=== PATIENT | male | born 1955 | race Caucasian/White ===

== ENCOUNTER 2023-01-26 11:44 | Emergency (ER) | payer BC, OTHER ==
[~2023-01-26] VITALS: Ht 167.6 cm; Wt 70.3 kg
[2023-01-26 11:53] VITALS: BP 115/61; TEMP 98.3
--- NOTE | 2023-01-26 11:53 | NUR ---
L 5TH DIGIT LACERATION YESTERDAY USING A HAND SAW. [facility] SENT HERE FOR A FINGER XRAY.
[2023-01-26] MEDS: TDAP [DIPH/PERTUSSIS/TET] 0.5 ML VIAL IM ONE (13:06)
[2023-01-26] MEDS ORDERED: BACI30OI9 TP (14:54)
[2023-01-26 15:17] VITALS: O2SAT 99
== END 2023-01-26 15:20 | disposition home or self-care (01) ==
LOC: ER 12:14
DX: S61.217A Laceration without foreign body of left little finger without damage to nail, initial encounter (principal); Z79.899 Other long term (current) drug therapy; W27.0XXA Contact with workbench tool, initial encounter; Y93.89 Activity, other specified; Y92.89 Other specified places as the place of occurrence of the external cause; Y99.8 Other external cause status
CPT/HCPCS: 73130-TC; 90715

== ENCOUNTER 2023-03-23 15:59 | Emergency (ER) | payer OTHER ==
[~2023-03-23] VITALS: Ht 165.1 cm; Wt 70.3 kg
[~2023-03-23 15:59] MED LIST: BACI30OI9 TP
[2023-03-23 16:25] VITALS: BP 109/70; TEMP 99.2; O2SAT 99
[2023-03-23] MEDS ORDERED: IBUP-1955 PO (16:49)
[2023-03-23] MEDS ORDERED: PRED20TA PO (16:49)
[2023-03-23] MEDS ORDERED: MUPI22OI2 TP (16:49)
[2023-03-23] MEDS ORDERED: BACI/NEOM/POLY B OINT PKT 1 UDPKT PACKET ONE (16:57)
[2023-03-23] MEDS ORDERED: KETOROLAC TROMETHAMINE INJ 30 MG/ML VIAL ONE (16:58)
[2023-03-23] MEDS ORDERED: BACI/NEOM/POLY B OINT PKT 1 UDPKT PACKET TP ONE (17:00)
[2023-03-23] MEDS ORDERED: KETOROLAC TROMETHAMINE INJ 60 MG/2 ML VIAL IM ONE (17:00)
== END 2023-03-23 17:08 | disposition home or self-care (01) ==
LOC: ER 16:04
DX: S60.416A Abrasion of right little finger, initial encounter (principal); M54.32 Sciatica, left side; Z79.899 Other long term (current) drug therapy; Z59.00 Homelessness unspecified; X58.XXXA Exposure to other specified factors, initial encounter; Y93.H2 Activity, gardening and landscaping; Y92.89 Other specified places as the place of occurrence of the external cause; Y99.8 Other external cause status
CPT/HCPCS: 99283; 96372; J1885

== ENCOUNTER 2023-06-15 08:54 | Emergency (ER) | payer MEDICAID, OTHER ==
[~2023-06-15] VITALS: Ht 170.2 cm; Wt 70.3 kg
[~2023-06-15 08:54] MED LIST changes: +IBUP-1955 PO; +MUPI22OI2 TP; +PRED20TA PO
[2023-06-15 09:42] LABS: BASOPHILS # (AUTO) 0.1 K/uL (0.0-0.2); BASOPHILS % (AUTO) 0.8 % (0.0-2.0); EOSINOPHILS # (AUTO) 0.3 K/uL (0.0-0.7); EOSINOPHILS % (AUTO) 4.1 % (0.0-6.0); HEMATOCRIT 39 % (39-51); LYMPHOCYTES # (AUTO) 2.4 K/uL (0.8-4.8); LYMPHOCYTES % (AUTO) 35.1 % (20.0-44.0); MEAN CORPUSCULAR HEMOGLOBIN 30 PG (26.0-33.0); MEAN CORPUSCULAR HGB CONC 33 g/dl (31.0-36.0); MEAN CORPUSCULAR VOLUME 89 fL (80-96); MONOCYTES # (AUTO) 0.6 K/uL (0.1-1.30); MONOCYTES % (AUTO) 8.7 % (2.0-12.0); NEUTROPHILS # (AUTO) 3.5 K/uL (1.8-8.9); NEUTROPHILS % (AUTO) 51.3 % (43.0-81.0); PLATELET COUNT (AUTO) 211 K/uL (150-450); RED CELL DISTRIBUTION WIDTH 14.4 % (11.5-15.0); WHITE BLOOD COUNT (AUTO) 6.8 K/uL (4.3-11.0)
[2023-06-15 09:53] LABS: CALCIUM, SERUM 8.9 mg/dL (8.5-10.1); CREATININE 0.7 mg/dL (0.6-1.3); POTASSIUM 3.5 mmol/L (3.5-5.1)
[2023-06-15 09:59] LABS: ALBUMIN 3.9 g/dL (3.4-5.0); BILIRUBIN,DIRECT 0.2 mg/dL (0.0-0.2); BILIRUBIN,TOTAL 0.7 mg/dL (0.2-1.0); TOTAL PROTEIN, SERUM 7.6 g/dL (6.4-8.2)
[2023-06-15 11:06] VITALS: BP 120/75; TEMP 98.2; O2SAT 96
== END 2023-06-15 11:08 | disposition home or self-care (01) ==
LOC: ER 08:54
DX: R10.30 Lower abdominal pain, unspecified (principal); Z98.890 Other specified postprocedural states; Z79.899 Other long term (current) drug therapy; Z59.00 Homelessness unspecified
CPT/HCPCS: 36415; 80048-TC; 80076-TC; 83690-TC; 85025-TC

== ENCOUNTER 2023-09-03 16:15 | Emergency (ER) | payer OTHER ==
[~2023-09-03] VITALS: Ht 167.6 cm; Wt 70.3 kg
[2023-09-03] MEDS ORDERED: FLUORESCEIN SODIUM OPHTH 1 EA STRIP ONE (16:40)
[2023-09-03] MEDS ORDERED: POLY10DR OP (16:50)
[2023-09-03] MEDS: FLUORESCEIN SODIUM OPHTH 1 EA STRIP OP ONE (17:08)
[2023-09-03 18:44] VITALS: BP 119/65; TEMP 98.2; O2SAT 98
== END 2023-09-03 17:30 | disposition home or self-care (01) ==
LOC: ER 16:18
DX: H57.12 Ocular pain, left eye (principal); Z98.890 Other specified postprocedural states; Z79.899 Other long term (current) drug therapy; Z59.00 Homelessness unspecified

== ENCOUNTER → 2023-11-11 | Emergency (ER) | payer OTHER ==
[~2023-11-11] VITALS: Ht 170.2 cm; Wt 70.3 kg
[~2023-11-11] MED LIST changes: +CYCL10TA9 PO; +IBUPROFEN 600 MG TABLET ONE; +POLY10DR OP
[2023-11-11] MEDS: IBUPROFEN 600 MG TABLET PO ONE (16:12)
[2023-11-11 16:18] VITALS: BP 111/64; TEMP 98.2; O2SAT 98
== END | disposition home or self-care (01) ==
LOC: ER 15:10
DX: S16.1XXA Strain of muscle, fascia and tendon at neck level, initial encounter (principal); S29.012A Strain of muscle and tendon of back wall of thorax, initial encounter; Z60.2 Problems related to living alone; Z98.890 Other specified postprocedural states; X50.0XXA Overexertion from strenuous movement or load, initial encounter; Y93.89 Activity, other specified; Y92.89 Other specified places as the place of occurrence of the external cause; Y99.8 Other external cause status